=== PATIENT | female | born 1960 | race African-American/Black ===

== ENCOUNTER 2023-01-04 12:30 | Emergency (ER) | payer MEDICARE, MEDICAID ==
[~2023-01-04] VITALS: Ht 167.6 cm; Wt 111.0 kg
[2023-01-04 12:57] VITALS: BP 153/96; PULSE 85; RESP 16; TEMP 98.7; O2SAT 99
== END 2023-01-04 15:08 | disposition left against medical advice (07) ==
LOC: ER 12:56
DX: Z53.21 Procedure and treatment not carried out due to patient leaving prior to being seen by health care provider (principal)
CPT/HCPCS: 99281

== ENCOUNTER 2025-02-18 11:26 | Emergency (ER) | payer MEDICARE, MEDICAID ==
[~2025-02-18] VITALS: Ht 167.6 cm; Wt 112.0 kg
[2025-02-18] MEDS: ALBUTEROL (0.083%) 2.5MG/3ML NEB HHN ONE (12:53)
[2025-02-18] MEDS: IPRATROPIUM BROMIDE (0.02%) 0.5MG/2.5ML NEB HHN ONE (12:54)
[2025-02-18 12:55] VITALS: PULSE 78; RESP 13; O2SAT 97
[2025-02-18 13:01] LABS: BASOPHILS % 1.0 % (0.0-2.0); EOSINOPHILS % 1.9 % (0.0-5.0); HEMATOCRIT. 37.4 % (36.0-48.0); HEMOGLOBIN. 12.1 g/dL (12.0-16.0); LYMPHOCYTES % 29.3 % (20.0-50.0); MEAN PLATELET VOLUME 8.9 fl (7.4-10.4); MONOCYTES % 7.8 % (2.0-8.0); NEUTROPHILS % 60.0 % (40.0-76.0); PLATELET 232 x1000/uL (130-400); RED BLOOD CELL COUNT 4.27 mill/uL (4.2-5.4); RED CELL DISTRIBUTION WIDTH 15.9 % (11.6-14.6)
[2025-02-18 13:14] LABS: CREATININE 1.2 mg/dL (0.6-1.0)
[2025-02-18 13:15] LABS: TROPONIN I HIGH SENSITIVITY 32 ng/L (3.0-34); UREA NITROGEN BLOOD 15 mg/dL (9-23)
[2025-02-18 13:16] LABS: ASPARTATE AMINOTRANSFERASE 14 IU/L (<34)
[2025-02-18 13:17] LABS: BILIRUBIN DIRECT 0.1 mg/dL (<=3.0); BILIRUBIN TOTAL 0.3 mg/dL (0.1-1.0); PROTEIN TOTAL 6.6 g/dL (6.0-8.3)
[2025-02-18 13:25] LABS: INR 1.0
[2025-02-18] MEDS ORDERED: POTA-202 MT (15:03)
[2025-02-18] MEDS ORDERED: FAMO40TA70 MT (15:05)
[2025-02-18] MEDS ORDERED: ALBU90AE INH (15:19)
[2025-02-18] MEDS: POTASSIUM CHLORIDE 20MEQ/PACKET PO NR (15:22)
[2025-02-18] MEDS: FAMOTIDINE 20MG TABLET PO NR (15:22)
[2025-02-18 15:27] VITALS: BP 151/89; PULSE 78; RESP 18; TEMP 36.9; O2SAT 99
== END 2025-02-18 15:31 | disposition home or self-care (01) ==
LOC: ER 11:58
DX: R10.13 Epigastric pain (principal); E87.6 Hypokalemia; I50.9 Heart failure, unspecified; I11.0 Hypertensive heart disease with heart failure; Z86.73 Personal history of transient ischemic attack (TIA), and cerebral infarction without residual deficits; Z79.899 Other long term (current) drug therapy
CPT/HCPCS: 36415; 71045; 74176; 80048; 80076; 83880; 84484; 85025; 85379; 93005; 94640; 99285